=== PATIENT | female | born 1965 | race Hispanic/Latino ===

== ENCOUNTER 2025-01-08 17:38 | Emergency (ER) | payer SELFPAY ==
[~2025-01-08] VITALS: Ht 149.9 cm; Wt 78.9 kg
[2025-01-08 17:40] VITALS: TEMP 98
[2025-01-08 18:11] LABS: BASOPHILS % 0.4 % (0.0-1.0); EOSINOPHILS # (AUTO) 0.1 (0.0-0.4); EOSINOPHILS % 1.1 % (0.0-6.0); HEMATOCRIT 40.3 % (34.2-44.1); HEMOGLOBIN 13.8 g/dL (12.0-16.0); LYMPHOCYTES # (AUTO) 1.4 (1.0-3.2); LYMPHOCYTES % 28.4 % (18.0-39.1); MEAN CORPUSCULAR HEMOGLOBIN 29.3 pg (28-32); MEAN CORPUSCULAR HGB CONC 34.2 g/dL (31-35); MEAN CORPUSCULAR VOLUME 85.6 fL (81-99); MONOCYTES # (AUTO) 0.3 (0.2-0.8); MONOCYTES % 6.1 % (4.4-11.3); NEUTROPHILS % 63.8 % (38.7-80.0); PLATELET COUNT 194 x10e3/uL (140-360); RED BLOOD COUNT 4.71 x10e6/uL (3.6-5.1); RED CELL DISTRIBUTION WIDTH 12.2 % (11.7-14.4); WHITE BLOOD COUNT 4.75 x10e3/uL (4.8-10.8)
[2025-01-08 18:38] LABS: ALBUMIN 4.2 g/dL (3.5-5.0); ALBUMIN/GLOBULIN RATIO 1.1 (0.8-2.0); ANION GAP 15.1 mmol/L (8-16); BILIRUBIN,TOTAL 0.3 mg/dL (0.2-1.2); CALCIUM 9.1 mg/dL (8.4-10.2); CREATININE, SERUM 0.73 mg/dL (0.57-1.11); POTASSIUM 4.1 mmol/L (3.5-5.1); TOTAL PROTEIN 8.1 g/dL (6.5-8.1)
[2025-01-08] MEDS: ASPIRIN 81 MG CHEW TAB PO ONE (19:37)
[2025-01-08 22:27] VITALS: PULSE 66; RESP 18
[2025-01-08 23:10] VITALS: BP 126/72; PULSE 73; RESP 17; TEMP 98; O2SAT 98
== END 2025-01-08 23:04 | disposition home or self-care (01) ==
LOC: EDBD 17:38 → ER 18:24
DX: R11.0 Nausea (principal); R07.9 Chest pain, unspecified; I10 Essential (primary) hypertension; E11.65 Type 2 diabetes mellitus with hyperglycemia; E78.5 Hyperlipidemia, unspecified; R94.31 Abnormal electrocardiogram [ECG] [EKG]
CPT/HCPCS: 36415; 71045; 80053; 84484; 85025; 93005; 99284